=== PATIENT | female | born 1995 | race African-American/Black ===

== ENCOUNTER 2018-04-04 11:34 | Emergency (ER) | payer OTHER, SELFPAY ==
[2018-04-04] MEDS ORDERED: diphenhydrAMINE 50 MG/ML VIAL ONE (12:49)
[2018-04-04] MEDS ORDERED: Metoclopramide HCl 10 MG/2 ML VIAL ONE (12:49)
[2018-04-04] MEDS ORDERED: Acetaminophen 500 MG TAB ONE (12:49)
--- NOTE | 2018-04-04 13:11 | CT ---
BRAIN CT WITHOUT IV CONTRAST: History: 22-year-old female with history of left sided headache for two weeks. FINDINGS: No focal mass or midline shift. No intra or extraaxial hemorrhage. Sinuses and mastoids are clear of acute process. IMPRESSION: No significant acute intracranial process. No mass or bleed. POS: [facility]
[2018-04-04 13:15] LABS: #Basophils 0.1 thou/uL (0.0-0.2); #Eosinphils 0.4 thou/uL (0.0-0.7); #Lymphocytes 3.2 thou/uL (1.20-3.40); #Monocytes 0.4 thou/uL (0.11-0.59); #Neutrophils 4.3 thou/uL (1.40-6.50); %Basophils 1.2 % (0.0-1.0); %Eosinophils 4.4 % (0.0-10.0); %Lymphocytes 38.6 % (21.0-51.0); %Monocytes 4.3 % (0.0-10.0); %Neutrophils 51.6 % (42.0-75.0); Hemoglobin 13.8 g/dL (12.0-16.0); Mean Corpuscular HGB CONC 32.1 g/dL (32.0-36.0); Mean Corpuscular Hemoglobin 28.6 pg (27.0-31.0); Mean Corpuscular Volume 89.2 fL (78.0-98.0); Mean Platelet Volume 7.5 fL (7.4-10.4); Platelet Count 342 thou/uL (130-400); RBC Distribution Width 12.1 % (11.5-14.5); Red Blood Cell (RBC) Count 4.83 mill/uL (4.20-5.40); White Blood Cell (WBC) Count 8.3 thou/uL (4.8-10.8)
[2018-04-04 13:34] LABS: BHCG - Serum Negative (NEGATIVE); Pregs Control Background? CLEAR/WHITE (CLR/WHITE); Pregs Control Bar Appear? YES (CONTROL BAR)
[2018-04-04 13:46] LABS: ALT (SGPT) 19 U/L (8-55); AST (SGOT) 16 U/L (5-34); Albumin 4.1 g/dL (3.5-5.0); Alkaline Phosphatase 86 U/L (40-150); Anion Gap 11 mmol/L (10-20); BUN (Urea Nitrogen) 7 mg/dL (7.0-18.7); Bilirubin, Total 0.4 mg/dL (0.2-1.2); Calc. Creatinine Clearance 0 mL/min (70-130); Calcium 9.8 mg/dL (7.8-10.44); Carbon Dioxide 21 mmol/L (22-29); Chloride 108 mmol/L (98-107); Estimated GFR-MDRD Greater than 90; Globulin 3.5 g/dL (2.4-3.5); Glucose 84 mg/dL (70-105); Protein, Total 7.6 g/dL (6.0-8.3); Sodium 136 mmol/L (136-145)
== END 2018-04-04 14:40 | disposition home or self-care (01) ==
LOC: ERS 11:34
DX: R51 Headache (principal)
CPT/HCPCS: 70450; 80053; 84703; 85025; 96361; 96374; 96375; J1200; J2765

== ENCOUNTER 2019-03-07 11:49 | Emergency (ER) | payer SELFPAY ==
[2019-03-07 12:40] LABS: #Basophils 0.1 thou/uL (0.0-0.2); #Eosinphils 0.4 thou/uL (0.0-0.7); #Lymphocytes 3.1 thou/uL (1.20-3.40); #Monocytes 0.3 thou/uL (0.11-0.59); #Neutrophils 3.6 thou/uL (1.40-6.50); %Basophils 1.1 % (0.0-1.0); %Eosinophils 4.8 % (0.0-10.0); %Lymphocytes 41.3 % (21.0-51.0); %Monocytes 4.5 % (0.0-10.0); %Neutrophils 48.4 % (42.0-75.0); Hemoglobin 13.5 g/dL (12.0-16.0); Mean Corpuscular HGB CONC 33.6 g/dL (32.0-36.0); Mean Corpuscular Hemoglobin 30.7 pg (27.0-31.0); Mean Corpuscular Volume 91.3 fL (78.0-98.0); Mean Platelet Volume 7.5 fL (7.4-10.4); Platelet Count 291 thou/uL (130-400); RBC Distribution Width 11.6 % (11.5-14.5); Red Blood Cell (RBC) Count 4.41 mill/uL (4.20-5.40); White Blood Cell (WBC) Count 7.4 thou/uL (4.8-10.8)
[2019-03-07 13:02] LABS: ALT (SGPT) 13 U/L (8-55); AST (SGOT) 13 U/L (5-34); Albumin 3.8 g/dL (3.5-5.0); Alkaline Phosphatase 93 U/L (40-110); Anion Gap 9 mmol/L (10-20); BUN (Urea Nitrogen) 9 mg/dL (7.0-18.7); Bilirubin, Total 0.3 mg/dL (0.2-1.2); Calc. Creatinine Clearance 0 mL/min (70-130); Carbon Dioxide 27 mmol/L (22-29); Chloride 107 mmol/L (98-107); Estimated GFR-MDRD Greater than 90; Glucose 95 mg/dL (70-105); Potassium 3.8 mmol/L (3.5-5.1); Protein, Total 6.8 g/dL (6.0-8.3); Sodium 139 mmol/L (136-145)
[2019-03-07] MEDS ORDERED: Dicyclomine 20 MG TAB ONE (14:08)
[2019-03-07] MEDS ORDERED: Ondansetron ODT 4 MG TAB ONE (14:08)
[2019-03-07 14:09] LABS: Bilirubin Negative (Negative); Blood, Urine 1+ (Negative); Clarity Clear (Clear); Glucose, Urine (Dipstick) Normal (Negative); Leukocyte Negative Leu/uL (Negative); Nitrite Negative (Negative); Protein, Urine (Dipstick) 20 mg/dL (Neg-Trace); RBC/HPF 0-3 HPF (0-3); WBC/HPF 0-3 HPF (0-3)
[2019-03-07 14:13] LABS: Pregnancy Test - Urine (BHCG) Negative (Negative); Pregu Control Background? CLEAR/WHITE (CLR/WHITE); Pregu Control Bar Appear? YES (CONTROL BAR); Specific Gravity 1.028 (1.002-1.036)
[2019-03-07 14:21] LABS: Bacteria/HPF 2+ HPF (None Seen)
[2019-03-07] MEDS ORDERED: Ketorolac Tromethamine 60 MG/2 ML VIAL ONE (15:03)
== END 2019-03-07 15:30 | disposition home or self-care (01) ==
LOC: ERS 11:49
DX: K29.70 Gastritis, unspecified, without bleeding (principal); R51 Headache
CPT/HCPCS: 36415; 80053; 81003; 81015; 81025; 83690; 85025; 96372; 99284; J1885; Q0162

== ENCOUNTER 2019-07-24 11:01 | Emergency (ER) | payer SELFPAY ==
--- NOTE | 2019-07-24 12:24 | RAD ---
2 VIEW CHEST: Date: 07/24/2019 HISTORY: Cough. COMPARISON: 02/09/19. FINDINGS: Lung joseph are clear. No infiltrate. Heart and mediastinum unremarkable. Osseous structures unremark able. IMPRESSION: Unremarkable chest. POS: [facility]
[2019-07-24] MEDS ORDERED: Ibuprofen 200 MG TAB ONE (13:07)
== END 2019-07-24 13:34 | disposition home or self-care (01) ==
LOC: ERS 11:01
DX: J06.9 Acute upper respiratory infection, unspecified (principal)
CPT/HCPCS: 71046; 87804; 94640; J7620

== ENCOUNTER 2019-12-24 09:11 | Emergency (ER) | payer SELFPAY ==
[2019-12-24] MEDS ORDERED: Ketorolac Tromethamine 30 MG/ML VIAL ONE (15:06)
== END 2019-12-24 12:38 | disposition left against medical advice (07) ==
LOC: ERS 09:11
DX: Z53.21 Procedure and treatment not carried out due to patient leaving prior to being seen by health care provider (principal)
CPT/HCPCS: J1885

== ENCOUNTER 2019-12-24 13:37 | Emergency (ER) | payer SELFPAY ==
[2019-12-24 14:47] LABS: Bilirubin Small (Negative); Blood, Urine Negative (Negative); Glucose, Urine (Dipstick) Negative (Negative); Ketone, Urine 15 mg/dL (Negative); Leukocyte Negative (Negative); Nitrite Negative (Negative); Protein, Urine (Dipstick) Trace mg/dL (Neg-Trace)
[2019-12-24 14:49] LABS: Clarity Clear (Clear); Pregnancy Test - Urine (BHCG) Negative (Negative); Pregu Control Background? CLEAR/WHITE (CLR/WHITE); Pregu Control Bar Appear? YES (CONTROL BAR); Specific Gravity 1.027 (1.002-1.036); Specific Gravity, Urine 1.027 (1.002-1.036)
== END 2019-12-24 15:36 | disposition home or self-care (01) ==
LOC: ERS 13:37
DX: S39.012A Strain of muscle, fascia and tendon of lower back, initial encounter (principal); X58.XXXA Exposure to other specified factors, initial encounter
CPT/HCPCS: 81003; 81025; 96372; 99283

== ENCOUNTER 2020-01-18 18:39 | Emergency (ER) | payer SELFPAY ==
[2020-01-18] MEDS ORDERED: Acetaminophen 500 MG TAB ONE (18:51)
[2020-01-18] MEDS ORDERED: Ondansetron ODT 4 MG TAB ONE (19:35)
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
== END 2020-01-18 19:44 | disposition home or self-care (01) ==
LOC: ERS 18:39
DX: S16.1XXA Strain of muscle, fascia and tendon at neck level, initial encounter (principal); S39.012A Strain of muscle, fascia and tendon of lower back, initial encounter; I10 Essential (primary) hypertension; V43.52XA Car driver injured in collision with other type car in traffic accident, initial encounter
CPT/HCPCS: 72040; Q0162

== ENCOUNTER 2022-09-10 09:30 | Emergency (ER) | payer OTHER ==
[2022-09-10] MEDS ORDERED: Lidocaine 1% MPF 2 ML VIAL ONE (10:39)
[2022-09-10] MEDS ORDERED: cefTRIAXone (ROCEPHIN) 500 MG VIAL ONE (10:39)
== END 2022-09-10 10:46 | disposition home or self-care (01) ==
LOC: ERS 09:30
DX: R10.9 Unspecified abdominal pain (principal); I10 Essential (primary) hypertension; Z20.2 Contact with and (suspected) exposure to infections with a predominantly sexual mode of transmission
CPT/HCPCS: 96372; 99284; J0696

== ENCOUNTER 2023-11-12 14:26 | Inpatient (IN) | payer MEDICAID, SELFPAY ==
[2023-11-12] MEDS ORDERED: Ipratropium/Albuterol 3 ML NEB ONE ×2 (14:55→16:39)
[2023-11-12] MEDS ORDERED: Albuterol 2.5 MG (3 mL) NEB ONE ×2 (14:55→16:39)
[2023-11-12] MEDS ORDERED: cefTRIAXone (ROCEPHIN) 2 GM VIAL ONE (14:57)
[2023-11-12] MEDS ORDERED: methylPREDNISolone Sod Succ/PF 125 MG/2 ML VIAL ONE (14:57)
[2023-11-12] MEDS ORDERED: Sodium Chloride 0.9% 100 ML ONE (14:57)
[2023-11-12] MEDS ORDERED: Ibuprofen 200 MG TAB ONE (14:57)
[2023-11-12 15:06] LABS: #Basophils 0.05 10x3/uL (0.0-0.2); #Eosinphils Less than 0.03 10x3/uL (0.0-0.7); %Basophils 0.4 % (0.0-1.0); %Eosinophils 0.1 % (0.0-10.0); %Lymphocytes 9.7 % (21.0-51.0); %Monocytes 5.7 % (0.0-10.0); %Neutrophils 83.6 % (42.0-75.0); Hematocrit 41.7 % (36.0-47.0); Hemoglobin 14.2 g/dL (12.0-16.0); Mean Corpuscular HGB CONC 34.1 g/dL (32.0-36.0); Mean Corpuscular Hemoglobin 29.6 pg (27.0-31.0); Mean Corpuscular Volume 86.9 fL (78.0-98.0); Mean Platelet Volume 9.8 fL (7.4-10.4); Platelet Count 297 10x3/uL (130-400); RBC Distribution Width 12.1 % (11.5-14.5)
[2023-11-12 15:19] LABS: ALT (SGPT) 17 U/L (8-55); AST (SGOT) 24 U/L (5-34); Albumin 3.4 g/dL (3.5-5.0); Alkaline Phosphatase 97 U/L (40-110); Anion Gap 12 mmol/L (10-20); BUN (Urea Nitrogen) 6 mg/dL (7.0-18.7); Bilirubin, Total 0.6 mg/dL (0.2-1.2); Calc. Creatinine Clearance 0 mL/min (70-130); Calcium 8.9 mg/dL (7.8-10.44); Carbon Dioxide 22 mmol/L (22-29); Chloride 108 mmol/L (98-107); Estimated GFR 117; Globulin 3.6 g/dL (2.4-3.5); Glucose 109 mg/dL (70-105); Potassium 3.6 mmol/L (3.5-5.1); Sodium 138 mmol/L (136-145)
[2023-11-12 16:32] LABS: Influenza A by NAA Not Detected (NotDetected); Influenza B by NAA Not Detected (NotDetected); SARS-CoV-2 NAA Rapid Test Not Detected (NotDetected)
[2023-11-12] MEDS ORDERED: Acetaminophen 500 MG TAB ONE (16:33)
[2023-11-12] MEDS ORDERED: Albuterol 2.5 MG (3 mL) NEB NEB PRN (21:19)
[2023-11-12] MEDS: Ipratropium/Albuterol 3 ML NEB EZPAP SCH (22:08)
[2023-11-12] MEDS ORDERED: Acetaminophen 650 MG Suppository PR PRN (23:02)
[2023-11-12] MEDS ORDERED: Ondansetron PF 4 MG/2 ML Vial IVP PRN (23:02)
[2023-11-12] MEDS ORDERED: Ondansetron ODT 4 MG TAB PO PRN (23:02)
[2023-11-12] MEDS: Montelukast Sodium 10 mg Tablet PO SCH (23:50)
[2023-11-13 00:45] VITALS: BMI 47.1
[2023-11-13] MEDS ORDERED: Aspirin/APAP/Caffeine Tab (Excedrin Migraine) PO PRN (06:14)
[2023-11-13] MEDS: Mometasone 100 MCG/Formoterol 5 MCG 120 PUFF INHALER INH SCH (06:53)
[2023-11-13 07:05] LABS: #Basophils 0.03 10x3/uL (0.0-0.2); #Eosinphils Less than 0.03 10x3/uL (0.0-0.7); %Basophils 0.2 % (0.0-1.0); %Lymphocytes 7.7 % (21.0-51.0); %Monocytes 5.1 % (0.0-10.0); %Neutrophils 86.6 % (42.0-75.0); Hematocrit 40.3 % (36.0-47.0); Hemoglobin 13.2 g/dL (12.0-16.0); Mean Corpuscular HGB CONC 32.8 g/dL (32.0-36.0); Mean Corpuscular Hemoglobin 30.3 pg (27.0-31.0); Mean Corpuscular Volume 92.6 fL (78.0-98.0); Mean Platelet Volume 10.6 fL (7.4-10.4); Platelet Count 254 10x3/uL (130-400); RBC Distribution Width 12.5 % (11.5-14.5); Red Blood Cell (RBC) Count 4.35 mill/uL (4.20-5.40)
[2023-11-13 08:34] LABS: Anion Gap 17 mmol/L (10-20); BUN (Urea Nitrogen) 6 mg/dL (7.0-18.7); Calc. Creatinine Clearance 257 mL/min (70-130); Carbon Dioxide 16 mmol/L (22-29); Chloride 111 mmol/L (98-107); Estimated GFR 121; Glucose 125 mg/dL (70-105); Potassium 3.5 mmol/L (3.5-5.1); Sodium 140 mmol/L (136-145)
[2023-11-13] MEDS: Famotidine 20 MG TAB PO SCH (08:34)
[2023-11-13] MEDS: predniSONE 20 MG TAB PO SCH (08:35)
[2023-11-13] MEDS: Doxycycline 100 MG CAP PO SCH (08:35)
[2023-11-13] MEDS: cefTRIAXone\\ROCEPHIN 1 GM in Sodium Chloride 0.9% 100 ML IVPB SCH (08:35)
[2023-11-13] MEDS: Famotidine/PF 20 mg/2ml Vial SLOW IVP SCH (08:36)
[2023-11-13] MEDS: Lisinopril 10 MG TAB PO SCH (10:43)
[2023-11-13] MEDS: Guaifenesin DM 100-10/5 ML UDCUP PO PRN (14:15)
[2023-11-13] MEDS: methylPREDNISolone Sod Succ 40 MG VIAL IVP SCH (17:19)
[2023-11-13] MEDS: Acetaminophen 325 MG TAB PO PRN (17:19)
[2023-11-13] MEDS: Montelukast Sodium 10 mg Tablet PO SCH (20:54)
[2023-11-14 06:38] LABS: Potassium 3.9 mmol/L (3.5-5.1)
[2023-11-14 06:42] LABS: Hemoglobin A1c 5.7 % (4.0-6.0)
[2023-11-15 08:32] VITALS: BP 178/85; TEMP 98
== END 2023-11-15 11:22 | disposition home or self-care (01) | DRG 202 ==
LOC: ERS 14:26 → 2SW 18:35 → OBSVTOIN 11-14 11:36
PROVIDERS: ADMIT Family Medicine; ATTEND Internal Medicine
DX: J45.31 Mild persistent asthma with (acute) exacerbation (principal); J18.9 Pneumonia, unspecified organism; I10 Essential (primary) hypertension; R73.03 Prediabetes; Z79.899 Other long term (current) drug therapy; Z98.890 Other specified postprocedural states
CPT/HCPCS: 71045; 80048; 80053; 83036; 83605; 84132; 85025; 87040; 93005; 94640; 94644; 94760; 96365; 96375; 96376; G0378; J0696; J2920; J2930; J3490; J7512; J7611; J7620

== ENCOUNTER 2025-01-29 09:06 | Emergency (ER) | payer SELFPAY ==
[2025-01-29] MEDS ORDERED: Albuterol 2.5 MG (3 mL) NEB ONE ×2 (09:32→10:40)
[2025-01-29] MEDS ORDERED: Dexamethasone 10 MG/ML VIAL ONE (09:32)
[2025-01-29] MEDS ORDERED: Magnesium 2 GM/50 ML BAG (IN WATER) ONE (09:32)
[2025-01-29 09:50] LABS: #Basophils 0.07 10x3/uL (0.0-0.2); #Eosinophils 0.25 10x3/uL (0.0-0.7); #Monocytes 0.52 10x3/uL (0.11-0.59); #Neutrophils 8.62 10x3/uL (1.40-6.50); %Basophils 0.5 % (0.0-1.0); %Eosinophils 1.9 % (0.0-10.0); %Lymphocytes 27.3 % (21.0-51.0); %Monocytes 4.0 % (0.0-10.0); %Neutrophils 66.1 % (42.0-75.0); Hematocrit 40.4 % (36.0-47.0); Hemoglobin 13.2 g/dL (12.0-16.0); Mean Corpuscular Hemoglobin 28.4 pg (27.0-31.0); Mean Corpuscular Volume 86.9 fL (78.0-98.0); Platelet Count 341 10x3/uL (130-400); Red Blood Cell (RBC) Count 4.65 mill/uL (4.20-5.40); White Blood Cell (WBC) Count 13.05 10x3/uL (4.8-10.8)
[2025-01-29 09:57] LABS: BHCG - Serum Negative (NEGATIVE); Pregs Control Background? CLEAR/WHITE (CLR/WHITE); Pregs Control Bar Appear? YES (CONTROL BAR)
[2025-01-29 10:09] LABS: ALT (SGPT) 14 U/L (Less than 34); AST (SGOT) 14 U/L (11-34); Albumin 3.7 g/dL (3.1-4.5); Alkaline Phosphatase 108 U/L (40-110); Anion Gap 14 mmol/L (10-20); BUN (Urea Nitrogen) 8 mg/dL (7.0-18.7); Bilirubin, Total 0.3 mg/dL (0.3-1.2); Calc. Creatinine Clearance 0 mL/min (70-130); Calcium 8.9 mg/dL (7.8-10.44); Carbon Dioxide 21 mmol/L (22-29); Chloride 113 mmol/L (98-107); Globulin 2.9 g/dL (2.4-3.5); Glucose 94 mg/dL (70-105); Potassium 4.0 mmol/L (3.5-5.1); Sodium 144 mmol/L (136-145)
== END 2025-01-29 11:58 | disposition home or self-care (01) ==
LOC: ERS 09:06
DX: J45.901 Unspecified asthma with (acute) exacerbation (principal); R05.1 Acute cough; I10 Essential (primary) hypertension
CPT/HCPCS: 71045; 80053; 84703; 85025; 93005; 96374; 96375; J1100; J3475; J7611; J7620

== ENCOUNTER 2025-03-14 11:13 | Emergency (ER) | payer BC, SELFPAY ==
[2025-03-14 13:02] LABS: #Basophils 0.07 10x3/uL (0.0-0.2); #Eosinophils 0.34 10x3/uL (0.0-0.7); #Monocytes 0.64 10x3/uL (0.11-0.59); #Neutrophils 8.48 10x3/uL (1.40-6.50); %Basophils 0.6 % (0.0-1.0); %Eosinophils 2.8 % (0.0-10.0); %Lymphocytes 22.0 % (21.0-51.0); %Monocytes 5.2 % (0.0-10.0); %Neutrophils 69.2 % (42.0-75.0); Hematocrit 43.3 % (36.0-47.0); Hemoglobin 14.2 g/dL (12.0-16.0); Mean Corpuscular Hemoglobin 28.0 pg (27.0-31.0); Mean Corpuscular Volume 85.4 fL (78.0-98.0); Platelet Count 338 10x3/uL (130-400); Red Blood Cell (RBC) Count 5.07 mill/uL (4.20-5.40); White Blood Cell (WBC) Count 12.25 10x3/uL (4.8-10.8)
[2025-03-14 13:13] LABS: BHCG - Serum Negative (NEGATIVE); Pregs Control Background? CLEAR/WHITE (CLR/WHITE); Pregs Control Bar Appear? YES (CONTROL BAR)
[2025-03-14 13:33] LABS: ALT (SGPT) 15 U/L (Less than 34); AST (SGOT) 18 U/L (11-34); Albumin 3.9 g/dL (3.1-4.5); Alkaline Phosphatase 100 U/L (40-110); Anion Gap 11 mmol/L (10-20); BUN (Urea Nitrogen) 6 mg/dL (7.0-18.7); Bilirubin, Total 0.7 mg/dL (0.3-1.2); Calc. Creatinine Clearance 0 mL/min (70-130); Calcium 9.2 mg/dL (7.8-10.44); Carbon Dioxide 22 mmol/L (22-29); Chloride 111 mmol/L (98-107); Globulin 3.3 g/dL (2.4-3.5); Glucose 95 mg/dL (70-105); Potassium 3.8 mmol/L (3.5-5.1); Sodium 140 mmol/L (136-145)
[2025-03-14] MEDS ORDERED: cefTRIAXone (ROCEPHIN) 1 GM VIAL ONE (14:42)
== END 2025-03-14 15:45 ==
LOC: ERS 11:13
DX: J18.9 Pneumonia, unspecified organism (principal); I10 Essential (primary) hypertension; Z79.899 Other long term (current) drug therapy; Z53.29 Procedure and treatment not carried out because of patient's decision for other reasons
CPT/HCPCS: 71045; 71275; 80053; 84484; 84703; 85025; 93005; J0696

== ENCOUNTER 2025-05-11 07:19 | Emergency (ER) | payer OTHER, SELFPAY ==
[2025-05-11] MEDS ORDERED: predniSONE 20 MG TAB ONE (07:55)
[2025-05-11] MEDS ORDERED: Ipratropium Bromide 2.5 ml Neb ONE (07:55)
[2025-05-11] MEDS ORDERED: Albuterol 2.5 MG (0.5 mL) NEB ONE (07:55)
[2025-05-11] MEDS ORDERED: Magnesium 2 GM/50 ML BAG (IN WATER) ONE (07:56)
[2025-05-11 08:03] LABS: #Basophils 0.06 10x3/uL (0.0-0.2); #Eosinophils 0.23 10x3/uL (0.0-0.7); #Monocytes 0.61 10x3/uL (0.11-0.59); #Neutrophils 10.77 10x3/uL (1.40-6.50); %Basophils 0.4 % (0.0-1.0); %Eosinophils 1.6 % (0.0-10.0); %Lymphocytes 17.3 % (21.0-51.0); %Monocytes 4.3 % (0.0-10.0); %Neutrophils 76.0 % (42.0-75.0); Hematocrit 42.2 % (36.0-47.0); Hemoglobin 13.6 g/dL (12.0-16.0); Mean Corpuscular Hemoglobin 27.5 pg (27.0-31.0); Mean Corpuscular Volume 85.4 fL (78.0-98.0); Platelet Count 349 10x3/uL (130-400); Red Blood Cell (RBC) Count 4.94 mill/uL (4.20-5.40); White Blood Cell (WBC) Count 14.18 10x3/uL (4.8-10.8)
[2025-05-11 08:18] LABS: BHCG - Serum Negative (NEGATIVE); Pregs Control Background? CLEAR/WHITE (CLR/WHITE); Pregs Control Bar Appear? YES (CONTROL BAR)
[2025-05-11 08:25] LABS: ALT (SGPT) 14 U/L (Less than 34); AST (SGOT) 17 U/L (11-34); Albumin 3.9 g/dL (3.1-4.5); Alkaline Phosphatase 112 U/L (40-110); Anion Gap 5 mmol/L (10-20); BUN (Urea Nitrogen) 7 mg/dL (7.0-18.7); Bilirubin, Total 0.4 mg/dL (0.3-1.2); Calc. Creatinine Clearance 0 mL/min (70-130); Calcium 9.1 mg/dL (7.8-10.44); Carbon Dioxide 21 mmol/L (22-29); Chloride 113 mmol/L (98-107); Globulin 3.2 g/dL (2.4-3.5); Glucose 100 mg/dL (70-105); Potassium 4.0 mmol/L (3.5-5.1); Sodium 135 mmol/L (136-145)
== END 2025-05-11 10:48 | disposition home or self-care (01) ==
LOC: ERS 07:19
DX: J45.901 Unspecified asthma with (acute) exacerbation (principal); I10 Essential (primary) hypertension; Z55.6 Problems related to health literacy; Z79.51 Long term (current) use of inhaled steroids; Z79.899 Other long term (current) drug therapy
CPT/HCPCS: 71046; 80053; 84484; 84703; 85025; 87428; 93005; 96365; J3475; J7512; J7611; J7644